=== PATIENT | male | born 1960 | race Asian ===

== ENCOUNTER 2017-04-25 07:49 | Day surgery (SDC) | payer OTHER ==
[~2017-04-25 07:49] MED LIST: EPHEDrine SULFATE 50 MG/5 ML SYG
[2017-04-25] MEDS ORDERED: PROPOFOL 20 ML (10:52)
[2017-04-25] MEDS ORDERED: FENTAnyl 50 MCG/ML VIAL (10:52)
[2017-04-25] MEDS ORDERED: MIDAZOLAM 1 MG/ML 2 ML INJ (10:52)
[2017-04-25] MEDS ORDERED: ROCURONIUM 50 MG INJ (10:52)
[2017-04-25] MEDS ORDERED: NEOSTIGMINE 3 MG/3 ML SYRINGE (10:52)
[2017-04-25] MEDS ORDERED: ONDANSETRON 4 MG INJ (10:52)
[2017-04-25] MEDS ORDERED: CEFAZOLIN 1 GM INJ (10:52)
[2017-04-25] MEDS ORDERED: GLYCOPYRROLATE 0.4 MG INJ (10:52)
[2017-04-25] MEDS ORDERED: DEXAMETHASONE 4 MG/ML 1 ML INJ (10:52)
[2017-04-25] MEDS ORDERED: GELATIN SIZE 100 SPONGE (10:54)
[2017-04-25] MEDS: BACITRACIN 0.9 GM OINT (11:20)
[2017-04-25] MEDS: EPINEPHrine 1 MG INJ (11:20)
[2017-04-25] MEDS ORDERED: PHENYLephrine (100 MCG/ML) 5ML SYG (11:21)
[2017-04-25] MEDS: LIDOCAINE 1% (MPF) 10 ML INJ ×2 (11:29)
== END 2017-04-25 14:01 | disposition home or self-care (01) ==
LOC: SDS 07:49
DX: H66.92 Otitis media, unspecified, left ear (principal); Z87.891 Personal history of nicotine dependence
CPT/HCPCS: 69436